=== PATIENT | female | born 1985 | race African-American/Black ===

== ENCOUNTER 2016-03-07 10:41 | Emergency (ER) | payer OTHER, MEDICAID ==
[2016-03-07 10:56] VITALS: BP 116/78
[2016-03-07] MEDS ORDERED: ACETAMINOPHEN 325 MG TABLET PO ONE (11:41)
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
== END 2016-03-07 12:30 | disposition home or self-care (01) ==
LOC: ER 10:41
DX: S40.012A Contusion of left shoulder, initial encounter (principal); S16.1XXA Strain of muscle, fascia and tendon at neck level, initial encounter; M54.9 Dorsalgia, unspecified; M54.2 Cervicalgia; W19.XXXA Unspecified fall, initial encounter
CPT/HCPCS: 99283

== ENCOUNTER → 2016-03-07 | Outpatient (CLI) | payer MEDICAID | LOC: RAD 09:19 | DX: R10.31 Right lower quadrant pain (principal) | CPT/HCPCS: 76830; 76856 ==

== ENCOUNTER 2016-04-02 13:16 | Emergency (ER) | payer MEDICAID ==
--- NOTE | 2016-04-02 13:54 | ER Document Report ---
ED Medical Screen (RME) - General Chief Complaint: Abdominal Pain Stated Complaint: ABDOMINAL PAIN Notes: nadira at [facility] referred her over endometriosis h/o ovarian cysts procedure sched on for laparoscopy to eval and remove endometriosis moderate pain and spotting for 7 days. home medications not helping I have greeted and performed a rapid initial assessment of this patient. A comprehensive ED assessment and evaluation of the patient, analysis of test results and completion of the medical decision making process will be conducted by additional ED providers. TRAVEL OUTSIDE OF THE [place] IN LAST 30 DAYS: No - Related Data Allergies/Adverse Reactions: Iodinated Contrast Media - Oral and [Iodinated Contrast Media - IV Dye] Allergy (Mild, Verified 04/02/16 13:50) Iodine and Iodide Containing Produc Allergy (Mild, Verified 04/02/16 13:50) acetaminophen [From Vicodin] Allergy (Verified 04/02/16 13:50) hydrocodone [From [place]] Allergy (Verified 04/02/16 13:50) hydrocodone bitartrate [From Vicodin] Allergy (Verified 04/02/16 13:50) tramadol Allergy (Verified 04/02/16 13:50) Past Medical History Renal/ Medical History: Reports: Hx Ovarian Cysts Musculoskeltal Medical History: Reports Hx Musculoskeletal Trauma Traumatic Medical History: Reports: Hx Fractures Past Surgical History: Reports: Hx Gynecologic Surgery - Left oophrectomy, ovarian cyst removal, Hx Oral Surgery - wisdom teeth removal - Immunizations Immunizations up to date: Yes Hx Diphtheria, Pertussis, Tetanus Vaccination: Yes
[2016-04-02 14:22] LABS: ABSOLUTE EOSINOPHILS # (AUTO) 0.1 10^3/uL (0.0-0.6); ABSOLUTE LYMPHOCYTES (AUTO) 1.4 10^3/uL (0.5-4.7); ABSOLUTE MONOCYTES (AUTO) 0.3 10^3/uL (0.1-1.4); BASOPHILS % (AUTO) 0.4 % (0-2); EOSINOPHILS % (AUTO) 1.7 % (0-6); HEMATOCRIT 38.7 % (36.0-47.0); HEMOGLOBIN 12.3 g/dL (12.0-15.5); HGB HCT DIFFERENCE -1.8; MEAN CORPUSCULAR HEMOGLOBIN 24.8 pg (27.0-33.4); MEAN CORPUSCULAR HGB CONC 31.9 g/dL (32.0-36.0); MEAN CORPUSCULAR VOLUME 78 fl (80-97); MONOCYTES % (AUTO) 8.4 % (3-13); RED BLOOD COUNT 4.96 10^6/uL (3.72-5.28); SEGMENTED NEUTROPHILS % (AUTO) 52.5 % (42-78); WHITE BLOOD COUNT 3.9 10^3/uL (4.0-10.5)
[2016-04-02 14:30] LABS: APPEARANCE,URINE CLEAR; BILIRUBIN,URINE NEGATIVE (NEGATIVE); GLUCOSE, URINE NEGATIVE (NEGATIVE); KETONES,URINE NEGATIVE (NEGATIVE); LEUKOCYTE ESTERASE,URINE NEGATIVE (NEGATIVE); NITRITE,URINE NEGATIVE (NEGATIVE); PROTEIN,URINE NEGATIVE (NEGATIVE); URINE SPECIFIC GRAVITY 1.003; UROBILINOGEN,URINE NEGATIVE mg/dL (<2.0)
[2016-04-02 14:42] LABS: ALANINE AMINOTRANSFERASE 18 U/L (9-52); ALBUMIN 4.5 g/dL (3.5-5.0); ALKALINE PHOSPHATASE 57 U/L (38-126); ANION GAP 12 (5-19); ASPARTATE AMINO TRANSFERASE 18 U/L (14-36); BILIRUBIN,TOTAL 0.5 mg/dL (0.2-1.3); BLOOD UREA NITROGEN 11 mg/dL (7-20); CALCIUM 9.4 mg/dL (8.4-10.2); CARBON DIOXIDE 26 mmol/L (22-30); CHLORIDE 106 mmol/L (98-107); CREATININE RESULT 0.83 mg/dL (0.52-1.25); GLUCOSE 92 mg/dL (75-110); POTASSIUM 4.5 mmol/L (3.6-5.0); SODIUM 143.8 mmol/L (137-145)
--- NOTE | 2016-04-02 16:10 | ER Document Report ---
ED General - General Chief Complaint: Abdominal Pain Stated Complaint: ABDOMINAL PAIN Mode of Arrival: Ambulatory Information source: Patient Notes: 30 yr old female with recent diagnosis of endometriosis supposed to have surgery by Dr Waters on the presents with complaintos f pelvic cramping and spotting yesterday. Pt notes those symptoms have resolved but now she has pain. pt denies any fevers or chills. Pt admits to nausea . TRAVEL OUTSIDE OF THE [place] IN LAST 30 DAYS: No - HPI Onset: Other Onset/Duration: Intermittent Quality of pain: Cramping - Related Data Allergies/Adverse Reactions: Iodinated Contrast Media - Oral and [Iodinated Contrast Media - IV Dye] Allergy (Mild, Verified 04/02/16 13:50) Iodine and Iodide Containing Produc Allergy (Mild, Verified 04/02/16 13:50) acetaminophen [From Vicodin] Allergy (Verified 04/02/16 13:50) hydrocodone [From [place]] Allergy (Verified 04/02/16 13:50) hydrocodone bitartrate [From Vicodin] Allergy (Verified 04/02/16 13:50) tramadol Allergy (Verified 04/02/16 13:50) Past Medical History - Social History Smoking Status: Never Smoker Chew tobacco use (# tins/day): No Frequency of alcohol use: None Drug Abuse: None Family History: Arthritis, CAD, CVA, DM, Hyperlipidemia, Hypertension, Malignancy, Thyroid Disfunction, Other Patient has suicidal ideation: No Patient has homicidal ideation: No Renal/ Medical History: Reports: Hx Ovarian Cysts. Denies: Hx Peritoneal Dialysis Musculoskeltal Medical History: Reports Hx Musculoskeletal Trauma Traumatic Medical History: Reports: Hx Fractures Past Surgical History: Reports: Hx Gynecologic Surgery - Left oophrectomy, ovarian cyst removal, Hx Oral Surgery - wisdom teeth removal - Immunizations Immunizations up to date: Yes Hx Diphtheria, Pertussis, Tetanus Vaccination: Yes Physical Exam - Vital signs Vitals: Temp Pulse Resp BP Pulse Ox 98.4 F 101 H 18 116/63 100 04/02/16 13:35 04/02/16 13:35 04/02/16 13:35 04/02/16 13:35 04/02/16 13:35 Course - Re-evaluation Re-evalutation: 04/02/16 16:[address] Waters , who states he did not diagnosis her with endometriosis and that plan is for exploratroy lap for her chronic pain. patient was explained this very clearly. 04/02/16 16:36 I do not feel patient requires narcotics at this time given that her story does not match the actual visit she had with Dr Waters Patient encouraged to follow-up with her LIFE SCIENCE RESEARCH ASSISTANT for further care After performing a Medical Screening Examination, I estimate there is LOW risk for ACUTE APPENDICITIS, BOWEL OBSTRUCTION, ACUTE CHOLECYSTITIS, PERFORATED DIVERTICULITIS, INCARCERATED HERNIA, PANCREATITIS, PELVIC INFLAMMATORY DISEASE, PERFORATED ULCER, ECTOPIC , or TUBO-OVARIAN ABSCESS, thus I consider the discharge disposition reasonable. Also, there is no evidence or peritonitis , sepsis, or toxicity. The patient and I have discussed the diagnosis and risks , and we agree with discharging home with close follow-up with the understanding that symptoms and presentations can change. We also discussed returning to the Emergency Department immediately if new or worsening symptoms occur. We have discussed the symptoms which are most concerning (e.g., bloody stool, fever, changing or worsening pain, vomiting) that necessitate immediate return. - Vital Signs Vital signs: Temp Pulse Resp BP Pulse Ox 98.4 F 104 H 18 116/63 100 04/02/16 13:51 04/02/16 13:51 04/02/16 13:51 04/02/16 13:51 04/02/16 13:51 - Laboratory Result Diagrams: 04/02/16 14:05 04/02/16 14:05 Laboratory results interpreted by me: 04/02/16 14:05 WBC 3.9 L MCV 78 L MCH 24.8 L MCHC 31.9 L Discharge - Discharge Clinical Impression: Chronic pelvic pain in female Condition: Stable Disposition: HOME, SELF-CARE Instructions: Abdominal Pain ([facility]) Prescriptions: Sulindac 200 mg PO Q8 #30 tablet Referrals: SCOTT WATERS MD [ACTIVE STAFF] - Follow up in 3-5 days
[2016-04-02 17:31] VITALS: BP 110/64
== END 2016-04-02 17:29 | disposition home or self-care (01) ==
LOC: ER 13:16
DX: G89.29 Other chronic pain (principal); R10.2 Pelvic and perineal pain; Z88.6 Allergy status to analgesic agent
CPT/HCPCS: 36415; 80053; 81001; 85025; 99284

== ENCOUNTER 2016-04-11 15:40 | Emergency (ER) | payer MEDICAID ==
--- NOTE | 2016-04-11 16:42 | ER Document Report ---
ED Medical Screen (RME) - General Stated Complaint: CRAMPING Notes: 30 yo female c/o lower abdominal cramping. hx/o endometriosis. pt is scheduled for surgery 04/23. Dr Waters @ [facility]. + urinary frequency, + nausea. TRAVEL OUTSIDE OF THE [place] IN LAST 30 DAYS: No - Related Data Allergies/Adverse Reactions: Iodinated Contrast Media - Oral and [Iodinated Contrast Media - IV Dye] Allergy (Mild, Verified 04/02/16 13:50) Iodine and Iodide Containing Produc Allergy (Mild, Verified 04/02/16 13:50) acetaminophen [From Vicodin] Allergy (Verified 04/02/16 13:50) hydrocodone [From [place]] Allergy (Verified 04/02/16 13:50) hydrocodone bitartrate [From Vicodin] Allergy (Verified 04/02/16 13:50) tramadol Allergy (Verified 04/02/16 13:50) Past Medical History Renal/ Medical History: Reports: Hx Ovarian Cysts. Denies: Hx Peritoneal Dialysis Musculoskeltal Medical History: Reports Hx Musculoskeletal Trauma Traumatic Medical History: Reports: Hx Fractures Past Surgical History: Reports: Hx Gynecologic Surgery - Left oophrectomy, ovarian cyst removal, Hx Oral Surgery - wisdom teeth removal - Immunizations Immunizations up to date: Yes Hx Diphtheria, Pertussis, Tetanus Vaccination: Yes Physical Exam - Vital signs Vitals: Temp Pulse Resp BP Pulse Ox 97.8 F 81 20 109/78 100 04/11/16 16:34 04/11/16 16:34 04/11/16 16:34 04/11/16 16:34 04/11/16 16:34 Course - Vital Signs Vital signs: Temp Pulse Resp BP Pulse Ox 97.8 F 81 20 109/78 100 04/11/16 16:34 04/11/16 16:34 04/11/16 16:34 04/11/16 16:34 04/11/16 16:34
[2016-04-11 17:44] LABS: ABSOLUTE EOSINOPHILS # (AUTO) 0.1 10^3/uL (0.0-0.6); ABSOLUTE LYMPHOCYTES (AUTO) 1.9 10^3/uL (0.5-4.7); ABSOLUTE MONOCYTES (AUTO) 0.3 10^3/uL (0.1-1.4); ABSOLUTE NEUT (AUTO) 1.7 10^3/uL (1.7-8.2); BASOPHILS % (AUTO) 0.6 % (0-2); EOSINOPHILS % (AUTO) 1.9 % (0-6); HEMATOCRIT 38.2 % (36.0-47.0); HEMOGLOBIN 12.3 g/dL (12.0-15.5); HGB HCT DIFFERENCE -1.3; LYMPHOCYTES % (AUTO) 48.2 % (13-45); MEAN CORPUSCULAR HGB CONC 32.3 g/dL (32.0-36.0); MEAN CORPUSCULAR VOLUME 78 fl (80-97); MONOCYTES % (AUTO) 7.1 % (3-13); RED BLOOD COUNT 4.92 10^6/uL (3.72-5.28); RED CELL DISTRIBUTION WIDTH 14.1 % (11.5-14.0); SEGMENTED NEUTROPHILS % (AUTO) 42.2 % (42-78)
[2016-04-11 17:56] LABS: APPEARANCE,URINE CLEAR; BILIRUBIN,URINE NEGATIVE (NEGATIVE); GLUCOSE, URINE NEGATIVE (NEGATIVE); KETONES,URINE NEGATIVE (NEGATIVE); LEUKOCYTE ESTERASE,URINE NEGATIVE (NEGATIVE); NITRITE,URINE NEGATIVE (NEGATIVE); PROTEIN,URINE NEGATIVE (NEGATIVE); URINE SPECIFIC GRAVITY 1.012; UROBILINOGEN,URINE NEGATIVE mg/dL (<2.0)
[2016-04-11 18:04] LABS: ALANINE AMINOTRANSFERASE 20 U/L (9-52); ALBUMIN 4.6 g/dL (3.5-5.0); ALKALINE PHOSPHATASE 57 U/L (38-126); ANION GAP 11 (5-19); ASPARTATE AMINO TRANSFERASE 21 U/L (14-36); BILIRUBIN,TOTAL 0.5 mg/dL (0.2-1.3); BLOOD UREA NITROGEN 11 mg/dL (7-20); CALCIUM 9.5 mg/dL (8.4-10.2); CARBON DIOXIDE 26 mmol/L (22-30); CHLORIDE 105 mmol/L (98-107); CREATININE RESULT 0.75 mg/dL (0.52-1.25); GLUCOSE 81 mg/dL (75-110); POTASSIUM 4.2 mmol/L (3.6-5.0); SODIUM 142.4 mmol/L (137-145); TOTAL PROTEIN 8.3 g/dL (6.3-8.2)
--- NOTE | 2016-04-11 18:32 | ER Document Report ---
ED General - General Chief Complaint: Abdominal Pain Stated Complaint: CRAMPING Notes: Patient is a 30-year-old female past medical history of chronic abdominal pain that is attributed to endometriosis who presents with diffuse abdominal pain that she has had for several months worsened in the last 3-4 days. States it is typically worsened around her menstrual cycle. Described as a diffuse, cramping, severe abdominal pain. Nothing improves or worsens the pain. She is scheduled for a exploratory laproscopic surgery on the of this month to further evaluate the cause of today's pain. Notes that she's had associated nausea and vomiting but has been able to tolerate oral intake. She is not had a fever, weakness, numbness, chest pain or shortness of breath. TRAVEL OUTSIDE OF THE [place] IN LAST 30 DAYS: No - Related Data Allergies/Adverse Reactions: Iodinated Contrast Media - Oral and [Iodinated Contrast Media - IV Dye] Allergy (Mild, Verified 04/11/16 16:39) Iodine and Iodide Containing Produc Allergy (Mild, Verified 04/11/16 16:39) acetaminophen [From Vicodin] Allergy (Verified 04/11/16 16:39) hydrocodone [From [place]] Allergy (Verified 04/11/16 16:39) hydrocodone bitartrate [From Vicodin] Allergy (Verified 04/11/16 16:39) tramadol Allergy (Verified 04/11/16 16:39) Past Medical History - General Information source: Patient - Social History Smoking Status: Never Smoker Chew tobacco use (# tins/day): No Frequency of alcohol use: None Drug Abuse: None Lives with: Spouse/Significant other Family History: Arthritis, CAD, CVA, DM, Hyperlipidemia, Hypertension, Malignancy, Thyroid Disfunction, Other Patient has suicidal ideation: No Patient has homicidal ideation: No Renal/ Medical History: Reports: Hx Ovarian Cysts. Denies: Hx Peritoneal Dialysis Musculoskeltal Medical History: Reports Hx Musculoskeletal Trauma Traumatic Medical History: Reports: Hx Fractures Past Surgical History: Reports: Hx Gynecologic Surgery - Left oophrectomy, ovarian cyst removal, Hx Oral Surgery - wisdom teeth removal - Immunizations Immunizations up to date: Yes Hx Diphtheria, Pertussis, Tetanus Vaccination: Yes Review of Systems - Review of Systems Notes: Constitutional: Negative for fever. HENT: Negative for sore throat. Eyes: Negative for visual changes. Cardiovascular: Negative for chest pain. Respiratory: Negative for shortness of breath. Gastrointestinal: Positive for abdominal pain and vomiting Genitourinary: Negative for dysuria. Musculoskeletal: Negative for back pain. Skin: Negative for rash. Neurological: Negative for headaches, weakness or numbness. 10 point ROS negative except as marked above and in HPI. Physical Exam - Vital signs Vitals: Temp Pulse Resp BP Pulse Ox 97.8 F 81 20 109/78 100 04/11/16 16:34 04/11/16 16:34 04/11/16 16:34 04/11/16 16:34 04/11/16 16:34 Interpretation: Normal Notes: PHYSICAL EXAMINATION: GENERAL: Well-appearing, well-nourished and in no acute distress. HEAD: Atraumatic, normocephalic. EYES: Pupils equal round and reactive to light, extraocular movements intact, sclera anicteric, conjunctiva are normal. ENT: nares patent, oropharynx clear without exudates. Moist mucous membranes. NECK: Normal range of motion, supple without lymphadenopathy LUNGS: Breath sounds clear to auscultation bilaterally and equal. No wheezes rales or rhonchi. HEART: Regular rate and rhythm without murmurs ABDOMEN: Soft, nontender, normoactive bowel sounds. No guarding, no rebound. No masses appreciated. EXTREMITIES: Normal range of motion, no pitting or edema. No cyanosis. NEUROLOGICAL: No focal neurological deficits. Moves all extremities spontaneously and on command. PSYCH: Normal mood, normal affect. SKIN: Warm, Dry, normal turgor, no rashes or lesions noted. Course - Re-evaluation Re-evalutation: 04/11/16 18:29 Patient presents with chronic intermittent abdominal pain thought to be secondary to endometriosis. She has an exploratory laparoscopy scheduled for the of this month. She is in no acute distress, vitals within normal limits. No focal abdominal tenderness on examination. Laboratories obtained in triage are unremarkable. Patient is not currently on hormonal therapy and has been instructed by her OB to wait to start this until after the exploratory laparoscopic. She'll be treated with a small amount of pain control and nausea control. I have told her that this is especially for nighttime: Her pain is severe and that this will last her for several days if taken as directed.At this time will discharge with return precautions and follow-up recommendations. Verbal discharge instructions given a the bedside and opportunity for questions given. Medication warnings reviewed. Patient is in agreement with this plan and has verbalized understanding of return precautions and the need for primary care follow-up in the next 24-72 hours. - Vital Signs Vital signs: Temp Pulse Resp BP Pulse Ox 97.8 F 78 18 117/74 100 04/11/16 18:52 04/11/16 18:52 04/11/16 18:52 04/11/16 18:52 04/11/16 18:52 - Laboratory Result Diagrams: 04/11/16 17:32 04/11/16 17:32 Laboratory results interpreted by me: 04/11/16 04/11/16 17:32 17:32 MCV 78 L MCH 25.0 L RDW 14.1 H Lymphocytes % 48.2 H Total Protein 8.3 H Discharge - Discharge Clinical Impression: Chronic abdominal pain Condition: Good Disposition: HOME, SELF-CARE Additional Instructions: You have been seen in the Emergency Department (ED) for abdominal pain. Your labs and assessment overall reassuring and her pain is likely due to her chronic endometriosis. Please follow up with your doctor as soon as possible regarding today's emergent visit and the symptoms that are bothering you. Return to the ED if your abdominal pain worsens or fails to improve, you develop bloody vomiting, bloody diarrhea, you are unable to tolerate fluids due to vomiting, fever greater than 101, or other symptoms that concern you. Prescriptions: Oxycodone HCl [Oxycontin Ir 5 Mg Tablet] 1 - 2 mg PO Q4H PRN #12 tablet PRN Reason: For Pain Referrals: ANTONIA VIVAR MD [Primary Care Provider] - Follow up as needed
[2016-04-11] MEDS ORDERED: OXYCODONE HCL IR 5 MG TABLET PO ONE (18:34)
[2016-04-11] MEDS ORDERED: ONDANSETRON ODT 4 MG TAB (6 TAB/DSPK) PO PRN (18:36)
[2016-04-11 18:54] VITALS: BP 117/74
== END 2016-04-11 19:00 | disposition home or self-care (01) ==
LOC: ER 15:40
DX: G89.29 Other chronic pain (principal); R10.84 Generalized abdominal pain; R11.2 Nausea with vomiting, unspecified; Z91.041 Radiographic dye allergy status; Z88.6 Allergy status to analgesic agent; Z88.5 Allergy status to narcotic agent; Z87.42 Personal history of other diseases of the female genital tract; Z90.79 Acquired absence of other genital organ(s)
CPT/HCPCS: 99284; 36415; 84703; 85025; 80053; 81001; J3490

== ENCOUNTER 2016-04-23 05:36 | Day surgery (SDC) | payer MEDICAID ==
[2016-04-20 11:04] LABS: HEMATOCRIT 39.8 % (36.0-47.0); HEMOGLOBIN 12.7 g/dL (12.0-15.5); HGB HCT DIFFERENCE -1.7; MEAN CORPUSCULAR VOLUME 78 fl (80-97); RED BLOOD COUNT 5.09 10^6/uL (3.72-5.28); RED CELL DISTRIBUTION WIDTH 14.3 % (11.5-14.0); WHITE BLOOD COUNT 4.2 10^3/uL (4.0-10.5)
[2016-04-20 11:18] LABS: PARTIAL THROMBOPLASTIN TIME 35.4 SEC (23.5-35.8); PROTHROMBIN TIME 16.6 SEC (11.4-15.4)
[2016-04-20 11:46] LABS: APPEARANCE,URINE SLIGHTLY-CLOUDY; BILIRUBIN,URINE NEGATIVE (NEGATIVE); GLUCOSE, URINE NEGATIVE (NEGATIVE); KETONES,URINE NEGATIVE (NEGATIVE); LEUKOCYTE ESTERASE,URINE NEGATIVE (NEGATIVE); NITRITE,URINE NEGATIVE (NEGATIVE); PROTEIN,URINE NEGATIVE (NEGATIVE); URINE SPECIFIC GRAVITY 1.026; UROBILINOGEN,URINE NEGATIVE mg/dL (<2.0)
[~2016-04-23 05:36] MED LIST: LACTATED RINGERS 1000 ML IV PRN; LIDOCAINE 0.5% INJ-PF (5 MG/ML) 50 ML SDV SUBCUT PRN
[2016-04-23] MEDS ORDERED: MORPHINE SULFATE 10 MG/ML INJ ONE (07:36)
[2016-04-23] MEDS ORDERED: MIDAZOLAM 2 MG/2 ML INJ ONE (07:36)
[2016-04-23] MEDS ORDERED: PROPOFOL INJ 200 MG/20 ML VIAL IV ONE (07:36)
[2016-04-23] MEDS ORDERED: FENTANYL CITRATE INJ/PF 250 MCG/5 ML AMPULE ONE (07:36)
--- NOTE | 2016-04-23 08:25 | Operative Report ---
Operative Report DATE OF SURGERY: 04/23/16 PREOPERATIVE DIAGNOSIS: Chronic pelvic pain POSTOPERATIVE DIAGNOSIS: Adhesions OPERATION: Diagnostic laparoscopy SURGEON: SCOTT GONSALEZ COMMERCIAL LOAN CLOSER: or staff ANESTHESIA: GA TISSUE REMOVED OR ALTERED: None COMPLICATIONS: None ESTIMATED BLOOD LOSS: 10 mL INTRAOPERATIVE FINDINGS: The uterus and omentum are densely adherent to the anterior abdominal wall. PROCEDURE: Patient was taken back to the OR. She's placed in supine position. General anesthesia was induced. She is in place in the dorsal lithotomy position using Parminder stirrups. Her abdomen perineum and vagina were prepared and draped in a sterile fashion. Incision was made at the umbilicus natural umbilical defect was identified and dilated with Maria Eugenia clamp. This allowed 5 mm port to be placed bluntly. Rhinoscopy confirmed appropriate placement. Sponge stick was placed in the vagina for manipulation of the uterus. Her bladder was drained prior to the case. View of the pelvis showed omental adhesion to the anterior abdominal wall. The uterus was densely adhered along its entire length to the anterior abdominal wall. The right ovary and tube were absent. Left ovary ovary and tube could be seen dangling behind the uterus. View of the cul-de-sacs very good. There appeared to be a lot of vascularity in the posterior cul-de-sac but no evidence of endometriosis. The dense adhesions are the most likely source of her abdominal pains. I did not attempt to lyse these adhesions as complications are likely with the uterus adherent to the anterior abdominal wall. Complications from bleeding and/or injury to bladder would be at risk. If she has completed childbearing perhaps a hysterectomy would be the best course of action at this point. At this point I allowed the gas to escape from the abdomen. The scope and port were removed and Unasyn. The fascia at the umbilicus closed with a 2-0 Vicryl stitch and skin closed with 4-0 undyed Vicryl suture. Patient was extubated and taken to recovery in stable condition.
[2016-04-23] MEDS ORDERED: KETOROLAC TROMETHAMINE INJ/PF 30 MG/1 ML SDV IV PRN (09:05)
[2016-04-23] MEDS ORDERED: IBUPROFEN 800 MG TABLET PO PRN (09:05)
[2016-04-23] MEDS ORDERED: OXYCODONE HCL IR 5 MG TABLET ONE (09:19)
[2016-04-23] MEDS ORDERED: OXYCODONE HCL IR 5 MG TABLET PO PRN ×2 (09:19→09:20)
[2016-04-23 10:56] VITALS: BP 114/78
[2016-04-23] MEDS ORDERED: ONDANSETRON HCL INJ/PF 4 MG/2 ML SDV ONE (14:49)
[2016-04-23] MEDS ORDERED: ROCURONIUM BROMIDE INJ 50 MG/5 ML VIAL IV ONE (14:49)
[2016-04-23] MEDS ORDERED: LIDOCAINE 2% INJ-PF (20 MG/ML) 10 ML AMPUL ONE (14:49)
[2016-04-23] MEDS ORDERED: GLYCOPYRROLATE INJ 0.4 MG/2 ML VIAL ONE (14:49)
[2016-04-23] MEDS ORDERED: METOCLOPRAMIDE HCL INJ/PF 10 MG/2 ML SDV ONE (14:49)
[2016-04-23] MEDS ORDERED: NEOSTIGMINE METHYLSULFATE 10 MG/10 ML VIAL ONE (14:49)
[2016-04-23] MEDS ORDERED: SUCCINYLCHOLINE CHLORIDE INJ 200 MG/10 ML VIAL ONE (14:49)
== END 2016-04-23 10:50 | disposition home or self-care (01) ==
LOC: OROUT 05:36
PROVIDERS: ATTEND Obstetrics & Gynecology
PROC: 0DNW4ZZ Release Peritoneum, Percutaneous Endoscopic Approach (ICD-10-PCS; principal; 2016-04-23 07:30)
DX: R10.2 Pelvic and perineal pain (principal); N73.6 Female pelvic peritoneal adhesions (postinfective); Z88.5 Allergy status to narcotic agent
CPT/HCPCS: 36415; 85027; 85610; 85730; 81005; 81025; 49329; J2250; J3490 ×4; J3010; J1885; J2765; J0330; J2405; J2704; 840; J2270

== ENCOUNTER 2016-06-27 16:24 | Observation (INO) | payer MEDICAID ==
[2016-06-27] MEDS ORDERED: DEXTROSE 40% GEL 15 GM TUBE PO PRN (16:48)
[2016-06-27] MEDS ORDERED: GLUCAGON,HUMAN RECOMB 1 MG INJ SUBCUT PRN (16:48)
[2016-06-27] MEDS ORDERED: DEXTROSE 50%-WATER 25 GM/50 ML DISP.SYRIN IV PRN ×2 (16:48)
[2016-06-27] MEDS ORDERED: ONDANSETRON HCL INJ/PF 4 MG/2 ML SDV ONE (17:24)
[2016-06-27] MEDS: HYDROMORPHONE HCL INJ/PF 2 MG/ML AMPULE IV PRN ×2 (17:25→22:05)
[2016-06-27 17:38] LABS: HEMATOCRIT 35.4 % (36.0-47.0); HEMOGLOBIN 11.5 g/dL (12.0-15.5); HGB HCT DIFFERENCE -0.9; MEAN CORPUSCULAR HEMOGLOBIN 25.2 pg (27.0-33.4); MEAN CORPUSCULAR HGB CONC 32.6 g/dL (32.0-36.0); MEAN CORPUSCULAR VOLUME 77 fl (80-97); RED BLOOD COUNT 4.58 10^6/uL (3.72-5.28); RED CELL DISTRIBUTION WIDTH 14.5 % (11.5-14.0); WHITE BLOOD COUNT 3.9 10^3/uL (4.0-10.5)
[2016-06-27] MEDS: ONDANSETRON HCL INJ/PF 4 MG/2 ML SDV IV PRN (22:05)
[2016-06-28] MEDS: RINGERS SOLUTION,LACTATED 1,000 ML IV PRN ×2 (03:09→21:10)
[2016-06-28] MEDS: ONDANSETRON HCL INJ/PF 4 MG/2 ML SDV IV PRN ×2 (04:05→08:45)
[2016-06-28] MEDS: HYDROMORPHONE HCL INJ/PF 2 MG/ML AMPULE IV PRN ×2 (04:05→08:32)
--- NOTE | 2016-06-28 11:00 | PDOC PROGRESS REPORT ---
Subjective Progress Note for:: 06/28/16 Subjective:: patient indicates her pain and discomfort has not changed significantly since yesterday. Is improved with pain meds. is desiring to eat. Physical Exam - Physical Exam Vital Signs: Temp Pulse Resp BP Pulse Ox 98.5 F 76 18 109/58 L 100 06/28/16 07:39 06/28/16 07:39 06/28/16 07:39 06/28/16 07:39 06/28/16 07:39 Intake & Output 06/27/16 06/28/16 06/29/16 06:59 06:59 06:59 Intake Total 1722 Output Total 1100 Balance 622 Weight 82.1 kg General appearance: PRESENT: no acute distress Eye exam: PRESENT: conjunctiva pink Mouth exam: PRESENT: moist GI/Abdominal exam: PRESENT: soft, tenderness - tenderness primarily on left lower quadrant radiating to pubic bone Result Laboratory Results: 06/27/16 17:26 06/27/16 06/27/16 17:26 17:26 WBC 3.9 L RBC 4.58 Hgb 11.5 L Hct 35.4 L MCV 77 L MCH 25.2 L MCHC 32.6 RDW 14.5 H Plt Count 154 Blood Type A POSITIVE Antibody Screen NEGATIVE Assessment & Plan - Diagnosis (1) at early stage Is this a current diagnosis for this admission?: Yes (2) Pelvic pain affecting in first trimester, antepartum Is this a current diagnosis for this admission?: Yes (3) Back pain Qualifiers: Back pain location: low back pain Is this a current diagnosis for this admission?: YesPlan: spoke with patient at length regarding potential normal uterine vs possibility of ectopic. Right now, levels of BHCG have risen normally for normal , however levels are too low to detect sonographically. Advised patient that as she is stable at this time would continue watching HCG levels to accurately determine location of . D/ W pt at length that could be viable and that she could continue with but that she would likely have pretty significant discomfort due to her pelvic adhesions that were visualized at her laparoscope in April with Dr. Waters. At this time main objective is to determine the viability of this and rule out or rule in an ectopic . Will continue to monitor in the hospital due to risks of rapid decompensation if is indeed an ectopic and rupture occurs. Voices understanding. Coleen Castañeda RN present during counseling. - Time Time Spent with patient: 15-24 minutes Critical Time spent with patient: 15-24 minutes Medications reviewed and adjusted accordingly: Yes Anticipated discharge: Home Within: within 36 hours - Inpatient Certification Based on my medical assessment, after consideration of the patient's comorbidities, presenting symptoms, or acuity I expect that the services needed warrant INPATIENT care.: Yes I certify that my determination is in accordance with my understanding of Medicare's requirements for reasonable and necessary INPATIENT services [42 CFR 412.3e].: Yes Medical Necessity: Need Close Monitoring Due to Risk of Patient Decompensation, Need for Pain Control
[2016-06-28] MEDS ORDERED: OXYCODONE-ACETAMINOPHEN 5-325 MG TABLET PO PRN (11:30)
[2016-06-28] MEDS: OXYCODONE-ACETAMINOPHEN 5-325 MG TABLET PO PRN ×2 (14:42→20:40)
[2016-06-28] MEDS: DIPHENHYDRAMINE HCL 50 MG CAPSULE PO PRN (20:39)
[2016-06-29] MEDS: OXYCODONE-ACETAMINOPHEN 5-325 MG TABLET PO PRN ×2 (02:25→08:40)
[2016-06-29] MEDS: DIPHENHYDRAMINE HCL 50 MG CAPSULE PO PRN (05:04)
[2016-06-29] MEDS: RINGERS SOLUTION,LACTATED 1,000 ML IV PRN (05:20)
[2016-06-29 14:34] VITALS: BP 100/60
--- NOTE | 2016-06-29 17:48 | DISCHARGE SUMMARY E ---
Discharge Summary NAME: CHELSEY BURNS : 1985 AGE: 30Y ADMITTED: 06/27/2016 DISCHARGED: 06/29/2016 ADMITTING DIAGNOSIS: Pelvic pain in , rule out ectopic. FINAL DIAGNOSES: 1. that is intrauterine. 2. Pelvic pain from adhesions. HISTORY: The patient was previously scheduled for hysterectomy for pelvic adhesions and pain. At the preop visit, she was noted to be and the surgery was canceled. She came in the next week with pain, was admitted to rule out an ectopic. She has had serial hCGs and ultrasounds. Today she shows an appropriate rise of the hCG and an intrauterine on ultrasound. At this point, we will allow her to go home, since she is not at risk from an ectopic. We will see her next week and continue to follow the . We are starting vitamins and I have given her a small prescription of Percocet to take for pain. She is supposed to take it very sparingly. CONDITION ON DISCHARGE: Good. DICTATING PHYSICIAN: SCOTT KISER M.D. [id number] PHY#: [id number] ID: [id number] JOB#: [id number] ACCT: [id number] cc:BRITTANI ABDI M.D., DAMAIN M.D. >
== END 2016-06-29 16:20 | disposition home or self-care (01) ==
LOC: 2N 16:24
PROVIDERS: ADMIT Specialist; ATTEND Specialist
DX: O99.89 Other specified diseases and conditions complicating pregnancy, childbirth and the puerperium (principal); N73.6 Female pelvic peritoneal adhesions (postinfective); M54.5 Low back pain; Z3A.00 Weeks of gestation of pregnancy not specified; Z90.721 Acquired absence of ovaries, unilateral; Z80.9 Family history of malignant neoplasm, unspecified
CPT/HCPCS: 86900; 86901; 36415 ×2; 86850; 84702 ×2; 85027; 76817; 93976; G0378 ×3; G0379; J3490 ×2; J1170 ×2; J2405 ×2; J7120 ×2

== ENCOUNTER → 2016-08-03 | Outpatient (CLI) | payer MEDICAID | LOC: OD 16:40 | PROVIDERS: ATTEND Student in an Organized Health Care Education/Training Program | DX: O02.1 Missed abortion (principal) | CPT/HCPCS: 36415; 84702 ==

== ENCOUNTER 2016-11-01 06:00 | Day surgery (SDC) | payer MEDICAID ==
[2016-10-26 12:44] LABS: HEMATOCRIT 36.4 % (36.0-47.0); HEMOGLOBIN 11.8 g/dL (12.0-15.5); MEAN CORPUSCULAR HEMOGLOBIN 25.5 pg (27.0-33.4); MEAN CORPUSCULAR HGB CONC 32.6 g/dL (32.0-36.0); MEAN CORPUSCULAR VOLUME 78 fl (80-97); RED BLOOD COUNT 4.65 10^6/uL (3.72-5.28); RED CELL DISTRIBUTION WIDTH 14.1 % (11.5-14.0); WHITE BLOOD COUNT 2.9 10^3/uL (4.0-10.5)
[2016-10-26 12:48] LABS: APPEARANCE,URINE CLEAR; BILIRUBIN,URINE NEGATIVE (NEGATIVE); GLUCOSE, URINE NEGATIVE (NEGATIVE); KETONES,URINE NEGATIVE (NEGATIVE); LEUKOCYTE ESTERASE,URINE NEGATIVE (NEGATIVE); NITRITE,URINE NEGATIVE (NEGATIVE); PROTEIN,URINE NEGATIVE (NEGATIVE); URINE SPECIFIC GRAVITY 1.027; UROBILINOGEN,URINE NEGATIVE mg/dL (<2.0)
[2016-10-26 13:14] LABS: ALANINE AMINOTRANSFERASE 17 U/L (9-52); ALBUMIN 4.1 g/dL (3.5-5.0); ALKALINE PHOSPHATASE 48 U/L (38-126); ANION GAP 9 (5-19); ASPARTATE AMINO TRANSFERASE 18 U/L (14-36); BILIRUBIN,DIRECT 0.3 mg/dL (0.0-0.4); BILIRUBIN,TOTAL 0.4 mg/dL (0.2-1.3); BLOOD UREA NITROGEN 9 mg/dL (7-20); CARBON DIOXIDE 27 mmol/L (22-30); CHLORIDE 104 mmol/L (98-107); CREATININE RESULT 0.67 mg/dL (0.52-1.25); GLUCOSE 87 mg/dL (75-110); POTASSIUM 4.5 mmol/L (3.6-5.0); SODIUM 140.3 mmol/L (137-145); TOTAL PROTEIN 7.5 g/dL (6.3-8.2)
[~2016-11-01 06:00] MED LIST changes: +CEFAZOLIN 2 GM/D5W RTU 2 GM/50 ML RTUPB IV PRN
[2016-11-01 06:34] VITALS: BP 117/79
[2016-11-01] MEDS ORDERED: FENTANYL CITRATE INJ/PF 250 MCG/5 ML AMPULE ONE (06:53)
[2016-11-01] MEDS ORDERED: ACETAMINOPHEN 0 ML IV ONE (06:54)
[2016-11-01] MEDS ORDERED: HYDROMORPHONE HCL INJ/PF 2 MG/ML AMPULE ONE (06:54)
[2016-11-01] MEDS ORDERED: MIDAZOLAM 2 MG/2 ML INJ ONE (06:54)
[2016-11-01] MEDS ORDERED: PROPOFOL INJ 200 MG/20 ML VIAL IV ONE (06:55)
== END 2016-11-01 08:30 | disposition home or self-care (01) ==
LOC: OROUT 06:00 → UNDOADMIN 06:01 → INOR 06:01 → EDSTATUS 07:30 → OROUT 08:30 → UNDODISIN 08:30
PROVIDERS: ATTEND Obstetrics & Gynecology
DX: Z01.818 Encounter for other preprocedural examination (principal)
CPT/HCPCS: 86900; 86901; 36415 ×2; 86850; 85027; 81025; 80053; 81001; J0690; J0131; J1170; J2250; J2704; J3010

== ENCOUNTER 2016-12-05 07:14 | Inpatient (IN) | payer MEDICAID ==
[~2016-12-05 07:14] MED LIST changes: +ACETAMINOPHEN 0 ML IV ONE; -CEFAZOLIN 2 GM/D5W RTU 2 GM/50 ML RTUPB IV PRN; +EPHEDRINE SULFATE INJ 50 MG/1 ML AMPULE ONE; +FENTANYL CITRATE INJ/PF 100 MCG/2 ML AMPUL ONE; +FENTANYL CITRATE INJ/PF 250 MCG/5 ML AMPULE ONE; -LACTATED RINGERS 1000 ML IV PRN; -LIDOCAINE 0.5% INJ-PF (5 MG/ML) 50 ML SDV SUBCUT PRN; +MIDAZOLAM 2 MG/2 ML INJ ONE; +MORPHINE SULFATE 10 MG/ML INJ ONE; +PROPOFOL INJ 200 MG/20 ML VIAL IV ONE
[2016-12-05] MEDS ORDERED: CEFAZOLIN 2 GM/D5W RTU 2 GM/50 ML RTUPB IV ONE (07:28)
[2016-12-05 08:11] LABS: HEMATOCRIT 35.4 % (36.0-47.0); HEMOGLOBIN 11.7 g/dL (12.0-15.5); HGB HCT DIFFERENCE -0.3; MEAN CORPUSCULAR HEMOGLOBIN 25.8 pg (27.0-33.4); MEAN CORPUSCULAR HGB CONC 33.1 g/dL (32.0-36.0); MEAN CORPUSCULAR VOLUME 78 fl (80-97); RED BLOOD COUNT 4.54 10^6/uL (3.72-5.28); RED CELL DISTRIBUTION WIDTH 14.3 % (11.5-14.0); WHITE BLOOD COUNT 4.3 10^3/uL (4.0-10.5)
[2016-12-05 08:24] LABS: ALANINE AMINOTRANSFERASE 21 U/L (9-52); ALBUMIN 3.9 g/dL (3.5-5.0); ALKALINE PHOSPHATASE 55 U/L (38-126); ANION GAP 6 (5-19); ASPARTATE AMINO TRANSFERASE 17 U/L (14-36); BILIRUBIN,DIRECT 0.3 mg/dL (0.0-0.4); BILIRUBIN,TOTAL 0.3 mg/dL (0.2-1.3); BLOOD UREA NITROGEN 11 mg/dL (7-20); CALCIUM 9.3 mg/dL (8.4-10.2); CARBON DIOXIDE 29 mmol/L (22-30); CHLORIDE 106 mmol/L (98-107); CREATININE RESULT 0.79 mg/dL (0.52-1.25); GLUCOSE 101 mg/dL (75-110); POTASSIUM 3.8 mmol/L (3.6-5.0); SODIUM 141.4 mmol/L (137-145); TOTAL PROTEIN 7.3 g/dL (6.3-8.2)
[2016-12-05 09:10] LABS: APPEARANCE,URINE SLIGHTLY-CLOUDY; BILIRUBIN,URINE NEGATIVE (NEGATIVE); GLUCOSE, URINE NEGATIVE (NEGATIVE); KETONES,URINE NEGATIVE (NEGATIVE); LEUKOCYTE ESTERASE,URINE MODERATE (NEGATIVE); NITRITE,URINE NEGATIVE (NEGATIVE); PROTEIN,URINE NEGATIVE (NEGATIVE); UROBILINOGEN,URINE NEGATIVE mg/dL (<2.0)
[2016-12-05] MEDS ORDERED: FENTANYL CITRATE INJ/PF 250 MCG/5 ML AMPULE ONE (09:50)
[2016-12-05] MEDS ORDERED: PROPOFOL INJ 200 MG/20 ML VIAL IV ONE (09:51)
[2016-12-05] MEDS ORDERED: MIDAZOLAM 2 MG/2 ML INJ ONE (09:51)
[2016-12-05] MEDS ORDERED: HYDROMORPHONE HCL INJ/PF 2 MG/ML AMPULE ONE ×2 (09:51→13:43)
[2016-12-05] MEDS ORDERED: EPHEDRINE SULFATE INJ 50 MG/1 ML AMPULE ONE (09:51)
[2016-12-05] MEDS ORDERED: ACETAMINOPHEN 100 ML IV ONE ×2 (09:52→20:00)
[2016-12-05] MEDS ORDERED: ROCURONIUM BROMIDE INJ 50 MG/5 ML VIAL IV ONE (11:28)
[2016-12-05] MEDS ORDERED: DEXAMETHASONE SOD PHOSPHATE INJ 4 MG/1 ML VIAL ONE (11:28)
[2016-12-05] MEDS ORDERED: ONDANSETRON HCL INJ/PF 4 MG/2 ML SDV ONE (11:28)
[2016-12-05] MEDS ORDERED: LIDOCAINE 2% INJ-PF (20 MG/ML) 10 ML AMPUL ONE (11:28)
[2016-12-05] MEDS ORDERED: GLYCOPYRROLATE INJ 0.4 MG/2 ML VIAL ONE (11:28)
[2016-12-05] MEDS ORDERED: NEOSTIGMINE METHYLSULFATE 10 MG/10 ML VIAL ONE (11:28)
[2016-12-05] MEDS ORDERED: PROMETHAZINE HCL INJ 25 MG/1 ML VIAL IV PRN (11:29)
[2016-12-05] MEDS ORDERED: DIPHENHYDRAMINE HCL 50 MG/ML VIAL IV PRN (11:29)
[2016-12-05] MEDS ORDERED: FENTANYL CITRATE INJ/PF 100 MCG/2 ML AMPUL IV PRN ×3 (11:29)
[2016-12-05] MEDS ORDERED: MEPERIDINE HCL/PF INJ 25 MG/1 ML DISP.SYRIN IV PRN (11:29)
[2016-12-05] MEDS: FENTANYL CITRATE INJ/PF 100 MCG/2 ML AMPUL ONE ×2 (13:22→13:30)
--- NOTE | 2016-12-05 13:33 | OPERATIVE REPORT E ---
Operative Report NAME: CHELSEY BURNS : 1985 AGE: 31Y DATE OF SURGERY: 12/05/2016 ROOM: OR TIME: 12:50 p.m. SURGEON: SCOTT KISER M.D. ORDER PROCESSING CLERK: DR. IVAN PREOPERATIVE DIAGNOSIS: Persistent uterine pain, pelvic pain. POSTOPERATIVE DIAGNOSIS: Dense adhesions of the uterus and the anterior abdominal pain and a left ovarian cyst. FINDINGS: Dense adhesions with left ovarian cyst. COMPLICATIONS: None. BLOOD LOSS: 100 mL. SPECIMEN: Uterus, left tube and ovary. PROCEDURE: Supracervical hysterectomy with a left salpingo-oophorectomy. INDICATION: The patient's history is significant for previous laparoscopy showing dense adhesions. She has had chronic pelvic pain and wishes to have her uterus and remaining ovary removed. DESCRIPTION OF THE PROCEDURE: The patient was taken to the OR and placed in a supine position. General anesthesia was induced. Her abdomen was prepared and draped in a sterile fashion. Her bladder was drained with a Toribio catheter. She was in a supine position. An incision was made and extended down to the level of the fascia, which was nicked in the midline. The fascial incision was extended bilaterally using curved Pereyra scissors. The fascia was off the rectus muscles using sharp and blunt dissection. The scar at this level was very dense. The uterus was adhesed to the back of the rectus muscles. The rectus muscles were divided and the dense adhesions of the uterus to the rectus were taken down sharply. This restored somewhat normal anatomy, although there were still very dense adhesions overlying the uterus at the level of the bladder. The [place] retractor was placed. The uterus was grasped and elevated. The round ligaments were grasped with [place] clamps, cut, and ligated with 0-Vicryl sutures. The uterine angles bilaterally were clamped with Maria Eugenia clamps for manipulation of the uterus. The anterior leaf of the broad ligament was incised creating a bladder flap. The bladder was taken down sharply as much as possible, although was very densely adhesed to the cervix. Next, the uterine arteries were clamped with the LigaSure device, cauterized and cut bilaterally. We continued to work with sharp and blunt dissection at the anterior aspect of the cervix over the bladder and were able to take the bladder down sharply for about 1 cm. It was still quite dense and at this point, we decided to do a supracervical hysterectomy because of the dense adhesions to the cervix. The uterine arteries had already been severed. The uterine body was cut free from the cervix with a knife. The upper cervical canal was cauterized with the Bovie. The cervical stump was then closed with interrupted sutures of 0 Vicryl. Hemostasis was assured at this point. The pedicles were inspected and the uterine artery pedicles were hemostatic. Attention was then turned to the ovary on the left. This was exposed and the infundibulopelvic pedicle was clamped, ligated, and cut using the LigaSure device. This pedicle was well away from the ureter at this point. The ovary and tube were then passed off the field. There was slight bleeding at the left round ligament pedicle and this was cauterized with the LigaSure device providing good hemostasis. The pelvis was irrigated and suctioned free of fluid. No further active bleeding could be seen. Interseed was placed over the cervical stump. The Zarephath retractor and lap sponges were removed, counts were correct. The rectus muscles were plicated together in the midline with 3 interrupted sutures of 0 Chromic. The subfascial tissues were inspected for bleeding. The fascia was closed with a running 0 Vicryl in 2 segments. The wound was irrigated. Kylah's layer was closed with 2-0 plain gut stitch and the skin was closed with a 4-0 undyed Vicryl suture. The wound was dressed. The patient was extubated in the OR and taken to the recovery room in stable condition. DICTATING PHYSICIAN: SCOTT KISER M.D. [id number] Y#: [id number] ID: [id number] JOB#: [id number] ACCT: [id number] cc:SCOTT KISER M.D. >
[2016-12-05] MEDS ORDERED: KETOROLAC TROMETHAMINE INJ/PF 30 MG/1 ML SDV IV ONE (15:00)
[2016-12-05 16:10] LABS: HEMATOCRIT 37.7 % (36.0-47.0); HEMOGLOBIN 12.3 g/dL (12.0-15.5); HGB HCT DIFFERENCE -0.8; MEAN CORPUSCULAR HEMOGLOBIN 25.3 pg (27.0-33.4); MEAN CORPUSCULAR HGB CONC 32.5 g/dL (32.0-36.0); MEAN CORPUSCULAR VOLUME 78 fl (80-97); RED BLOOD COUNT 4.85 10^6/uL (3.72-5.28); RED CELL DISTRIBUTION WIDTH 14.5 % (11.5-14.0)
[2016-12-05 16:11] LABS: WHITE BLOOD COUNT 10.4 10^3/uL (4.0-10.5)
[2016-12-05 17:04] LABS: ANION GAP 7 (5-19); BLOOD UREA NITROGEN 9 mg/dL (7-20); CALCIUM 8.9 mg/dL (8.4-10.2); CARBON DIOXIDE 28 mmol/L (22-30); CHLORIDE 105 mmol/L (98-107); CREATININE RESULT 0.71 mg/dL (0.52-1.25); GLUCOSE 116 mg/dL (75-110); POTASSIUM 3.8 mmol/L (3.6-5.0); SODIUM 140.3 mmol/L (137-145)
[2016-12-05] MEDS: RINGERS SOLUTION,LACTATED 1,000 ML IV PRN (17:05)
[2016-12-05] MEDS: ONDANSETRON 4 MG TAB.RAPDIS PO PRN (19:55)
[2016-12-05] MEDS: OXYCODONE-ACETAMINOPHEN 5-325 MG TABLET PO PRN (19:55)
[2016-12-05] MEDS: HYDROMORPHONE HCL INJ/PF 2 MG/ML AMPULE IV PRN (21:40)
[2016-12-06] MEDS: HYDROMORPHONE HCL INJ/PF 2 MG/ML AMPULE IV PRN ×4 (00:49→18:59)
[2016-12-06] MEDS: RINGERS SOLUTION,LACTATED 1,000 ML IV PRN (02:00)
[2016-12-06 06:31] LABS: HEMATOCRIT 32.6 % (36.0-47.0); HEMOGLOBIN 10.7 g/dL (12.0-15.5); HGB HCT DIFFERENCE -0.5; MEAN CORPUSCULAR HEMOGLOBIN 25.6 pg (27.0-33.4); MEAN CORPUSCULAR HGB CONC 32.9 g/dL (32.0-36.0); MEAN CORPUSCULAR VOLUME 78 fl (80-97); RED BLOOD COUNT 4.19 10^6/uL (3.72-5.28); RED CELL DISTRIBUTION WIDTH 14.4 % (11.5-14.0); WHITE BLOOD COUNT 9.2 10^3/uL (4.0-10.5)
[2016-12-06 06:48] LABS: ANION GAP 7 (5-19); BLOOD UREA NITROGEN 8 mg/dL (7-20); CARBON DIOXIDE 27 mmol/L (22-30); CHLORIDE 102 mmol/L (98-107); CREATININE RESULT 0.74 mg/dL (0.52-1.25); GLUCOSE 106 mg/dL (75-110); POTASSIUM 4.2 mmol/L (3.6-5.0); SODIUM 135.7 mmol/L (137-145)
[2016-12-06] MEDS: ONDANSETRON 4 MG TAB.RAPDIS PO PRN (08:19)
[2016-12-06] MEDS: IBUPROFEN 800 MG TABLET PO SCH ×2 (11:39→21:32)
[2016-12-06] MEDS: OXYCODONE-ACETAMINOPHEN 5-325 MG TABLET PO PRN ×2 (11:40→21:42)
[2016-12-07] MEDS: HYDROMORPHONE HCL INJ/PF 2 MG/ML AMPULE IV PRN (00:50)
[2016-12-07] MEDS: OXYCODONE-ACETAMINOPHEN 5-325 MG TABLET PO PRN ×2 (05:58→12:25)
--- NOTE | 2016-12-07 06:22 | DISCHARGE SUMMARY E ---
Discharge Summary NAME: CHELSEY BURNS : 1985 AGE: 31Y ADMITTED: 12/05/2016 DISCHARGED: 12/06/2016 The patient was admitted on 12/05 for a hysterectomy. ADMITTING DIAGNOSIS: Pelvic adhesions and pelvic pain. HISTORY OF PRESENT ILLNESS: Patient is a 31-year-old female who has completed childbearing. She has had a previous , and her uterus is adhesed to the anterior abdominal wall. This has been seen on a previous laparoscopy. She is done with childbearing and would like a hysterectomy to help her with her chronic pelvic pain. HOSPITAL COURSE: Patient was admitted and underwent an abdominal hysterectomy, and her remaining left ovary was removed as well at her request. Procedure went well. Please see the operative report. On the night of surgery, her pain was controlled. She was able to ambulate. Her Toribio was removed the following day. She was able to void and started on a regular diet. Her hemoglobin, hematocrit, and vitals were stable. On postop day 2, she continued to do well and went home later that day with followup in 1 week in the office. DISCHARGE MEDICATIONS: Included Percocet, Motrin, and Premarin. The Premarin is 0.9 mg once a day to help with hot flashes and night sweats. CONDITION ON DISCHARGE: Good. DISCHARGE INSTRUCTIONS: As stated previously, she will follow up in 1 week. She is to go home to rest, pelvic rest. No driving for 2 weeks. DICTATING PHYSICIAN: SCOTT KISER M.D. [id number] PHY#: [id number] ID: [id number] JOB#: [id number] ACCT: [id number] cc:SCOTT KISER M.D. >
[2016-12-07] MEDS: IBUPROFEN 800 MG TABLET PO SCH (09:00)
[2016-12-07] MEDS ORDERED: PHENAZOPYRIDINE HCL 100 MG TABLET PO SCH (10:00)
[2016-12-07] MEDS ORDERED: NITROFURANTOIN MONOHYD/M-CRYST 100 MG CAPSULE PO SCH (10:00)
[2016-12-07 11:07] VITALS: BP 124/85
[2016-12-07] MEDS: ONDANSETRON 4 MG TAB.RAPDIS PO PRN (12:26)
== END 2016-12-07 13:08 | disposition home or self-care (01) | DRG 983 ==
LOC: INOR 07:14 → 2N 14:34
PROVIDERS: ADMIT Obstetrics & Gynecology; ATTEND Obstetrics & Gynecology
PROC: 0UT90ZL Resection of Uterus, Supracervical, Open Approach (ICD-10-PCS; 2016-12-05)
PROC: 0UN90ZZ Release Uterus, Open Approach (ICD-10-PCS; 2016-12-05)
PROC: 0UB10ZZ Excision of Left Ovary, Open Approach (ICD-10-PCS; principal; 2016-12-05 10:45)
DX: G89.29 Other chronic pain (principal); R10.2 Pelvic and perineal pain; N71.9 Inflammatory disease of uterus, unspecified; N83.202 Unspecified ovarian cyst, left side; Z80.9 Family history of malignant neoplasm, unspecified
CPT/HCPCS: 36415; 80048; 80053; 81001; 81025; 840; 85027; 86850; 86900; 86901; 88307; C1765; J0131; J0690; J1100; J1170; J1885; J2250; J2270; J2405; J2704; J3010; J3490; J7120; J8499; S0119

== ENCOUNTER 2017-04-11 22:59 | Emergency (ER) | payer MEDICAID ==
[2017-04-12] MEDS ORDERED: IBUPROFEN 600 MG TABLET PO ONE (01:54)
--- NOTE | 2017-04-12 01:54 | ER Document Report ---
ED Medical Screen (RME) - General Chief Complaint: Foot Injury Stated Complaint: TOE INJURY Time Seen by Provider: 04/12/17 01:51 TRAVEL OUTSIDE OF THE [place] IN LAST 30 DAYS: No - HPI Notes: 04/12/17 01:51 Patient is a 31-year-old female who presents to the ED complaining of a crush injury to her left foot status post injury prior to arrival. Patient states that she was moving her 55 inch TV when it fell and landed on the top of her foot. Patient states that she has had pain since then. The pain does not radiate. Pain is described as a sharp pain. Patient states that she fractured her fifth phalanges on that foot a few months ago. Patient has not taken any medications for her symptoms. Denies any headache, fever, head injury, URI, sore throat, chest pain, palpitations, syncope, cough, shortness of breath, wheeze, dyspnea, abdominal pain, nausea/vomiting/diarrhea, urinary retention, dysuria, hematuria, loss of control of bowel or bladder, numbness/tingling, or rash. I have treated and performed a rapid initial assessment of this patient. A comprehensive ED assessment and evaluation of the patient, analysis of test results and completion of medical decision making process will be conducted by additional ED providers. - Related Data Allergies/Adverse Reactions: hydrocodone [From [place]] Allergy (Severe, Verified 10/26/16 11:02) rash hydrocodone bitartrate [From Vicodin] Allergy (Severe, Verified 10/26/16 11:02) rash Iodinated Contrast- Oral and IV Dye [Iodinated Contrast Media - IV Dye] Allergy (Severe, Verified 10/26/16 11:02) itching tramadol Allergy (Severe, Verified 10/26/16 11:02) rash Iodine and Iodide Containing Produc Allergy (Mild, Verified 10/26/16 11:02) itching Past Medical History - Past Medical History Cardiac Medical History: Pulmonary Medical History: Neurological Medical History: Renal/ Medical History: Denies: Hx Ovarian Cysts, Hx Peritoneal Dialysis, Hx Pelvic Inflammatory Disease Malignancy Medical History: Denies: Hx Breast Cancer, Hx Cervical Cancer, Hx Leukemia, Hx Ovarian Cancer GI Medical History: Reports: Hx Gastroesophageal Reflux Disease - PRILOSEC. Denies: Hx Crohn's Disease, Hx Hiatal Hernia, Hx Irritable Bowel, Hx Liver Failure, Hx Pancreatitis, Hx Ulcer Musculoskeltal Medical History: Denies Hx Arthritis, Denies Hx Fibromyalgia, Denies Hx Muscular Dystrophy, Reports Hx Musculoskeletal Trauma Traumatic Medical History: Reports: Hx Fractures Infectious Medical History: Denies: Hx HIV Past Surgical History: Reports: Hx Section - 2013, Hx Gynecologic Surgery - Left oophrectomy, ovarian cyst removal, Hx Hysterectomy, Hx Oral Surgery - wisdom teeth removal. Denies: Hx Appendectomy, Hx Bowel Surgery, Hx Cholecystectomy, Hx Colostomy, Hx Coronary Artery Bypass Graft, Hx Gastric Bypass Surgery, Hx Herniorrhaphy, Hx Mastectomy, Hx Pacemaker, Hx Tonsillectomy , Hx Tubal Ligation - Immunizations Immunizations up to date: Yes Hx Diphtheria, Pertussis, Tetanus Vaccination: Yes History of Influenza Vaccine for 12/2016 - 05/2017 Season: No Physical Exam - Vital signs Vitals: Temp Pulse Resp BP Pulse Ox 98.0 F 107 H 18 111/78 100 04/11/17 23:21 04/11/17 23:21 04/11/17 23:21 04/11/17 23:21 04/11/17 23:21 - Respiratory Breath sounds: Normal - Cardiovascular Rhythm: Regular Heart sounds: Normal auscultation - Extremities Foot: Tender - dorsal foot, Metatarsal compress. pain, Unable to bear weight. No: Abrasion, Deformity, Ecchymosis, Laceration Course - Vital Signs Vital signs: Temp Pulse Resp BP Pulse Ox 98.0 F 87 18 112/75 100 04/12/17 01:30 04/12/17 01:30 04/12/17 01:30 04/12/17 01:30 04/12/17 01:30
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
[2017-04-12] MEDS ORDERED: OXYCODONE-ACETAMINOPHEN 5-325 MG TABLET PO ONE (02:25)
--- NOTE | 2017-04-12 02:29 | RADIOLOGY REPORT (SQ) ---
EXAM DESCRIPTION: FOOT LEFT COMPLETE CLINICAL HISTORY: left foot pain s/p crush injury COMPARISON: None. FINDINGS: 3 views of the left foot. Acute minimally displaced fracture involving the base of the left fifth proximal phalanx. No other fractures identified. The tarsals and metatarsals are appropriately aligned. Normal osseous mineralization. Pes planus. IMPRESSION: 1. Acute minimally displaced fracture involving the base of the left fifth proximal phalanx.
[2017-04-12 03:27] VITALS: BP 111/73
== END 2017-04-12 03:37 | disposition home or self-care (01) ==
LOC: ER 22:59
DX: S92.512A Displaced fracture of proximal phalanx of left lesser toe(s), initial encounter for closed fracture (principal); W20.8XXA Other cause of strike by thrown, projected or falling object, initial encounter; Z88.5 Allergy status to narcotic agent; Z91.041 Radiographic dye allergy status
CPT/HCPCS: 99283; 73630; J3490

== ENCOUNTER 2017-10-05 13:36 | Emergency (ER) | payer MEDICAID ==
[2017-10-05 13:46] VITALS: BP 127/79
[2017-10-05] MEDS ORDERED: LIDOCAINE 2% VISCOUS SOLN 20 ML UDCUP PO ONE (14:06)
--- NOTE | 2017-10-05 14:12 | ER Document Report ---
HPI - HPI Patient complains to provider of: Sore on her right cheek Onset: Other - A few days Onset/Duration: Gradual, Persistent Pain Level: 5 Context: 31-year-old female complaining of severe pain to her right cheek where there is a sore. She thinks it is her tooth. No fever or chills. Facial swelling. Associated Symptoms: None Exacerbated by: Other - Touching the area Relieved by: Denies Similar symptoms previously: No Recently seen / treated by doctor: No - ROS ROS below otherwise negative: Yes Systems Reviewed and Negative: Yes All other systems reviewed and negative - REPRODUCTIVE LMP: Hysterectomy Past Medical History - General Information source: Patient - Social History Smoking Status: Never Smoker Chew tobacco use (# tins/day): No Frequency of alcohol use: None Drug Abuse: None Lives with: Family Family History: Arthritis, CAD, CVA, DM, Hyperlipidemia, Hypertension, Malignancy, Thyroid Disfunction, Other Patient has suicidal ideation: No Patient has homicidal ideation: No - Past Medical History Cardiac Medical History: Pulmonary Medical History: Neurological Medical History: GI Medical History: Reports: Hx Gastroesophageal Reflux Disease - PRILOSEC Musculoskeletal Medical History: Reports Hx Musculoskeletal Trauma Traumatic Medical History: Reports: Hx Fractures Past Surgical History: Reports: Hx Section - 2012, Hx Gynecologic Surgery - Left oophrectomy, ovarian cyst removal, Hx Hysterectomy, Hx Oral Surgery - wisdom teeth removal - Immunizations Immunizations up to date: Yes Hx Diphtheria, Pertussis, Tetanus Vaccination: Yes Vertical Provider Document - CONSTITUTIONAL Agree With Documented VS: Yes Exam Limitations: No Limitations - INFECTION CONTROL TRAVEL OUTSIDE OF THE [place] IN LAST 30 DAYS: No - HEENT Notes: Abscess ulcer inside right buccal mucosa teeth are nontender and there is no gingival inflammation or swelling. - NECK Neck: Supple - NEURO Level of Consciousness: Alert, Appropriate Course - Vital Signs Vital signs: Temp Pulse Resp BP Pulse Ox 98.8 F 91 20 127/79 H 98 10/05/17 13:44 10/05/17 13:44 10/05/17 13:44 10/05/17 13:44 10/05/17 13:44 Discharge - Discharge Clinical Impression: Aphthous ulcer Condition: Good Disposition: HOME, SELF-CARE Instructions: Ulcer ([facility]) Additional Instructions: lidocaine to numb the apthous ulcer rinse mouth tylenol motrin to er any concerns Prescriptions: Ibuprofen [Motrin 600 mg Tablet] 600 mg PO Q8HP PRN #30 tablet PRN Reason: Referrals: ANTONIA VIVAR MD [Primary Care Provider] - Follow up as needed
== END 2017-10-05 14:17 | disposition home or self-care (01) ==
LOC: ER 13:36
DX: K12.0 Recurrent oral aphthae (principal)
CPT/HCPCS: 99282; J3490

== ENCOUNTER 2018-02-23 00:56 | Emergency (ER) | payer MEDICAID ==
[2018-02-23] MEDS ORDERED: ACETAMINOPHEN 325 MG TABLET PO ONE (02:07)
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
[2018-02-23 03:20] VITALS: BP 128/71
== END 2018-02-23 03:19 | disposition home or self-care (01) ==
LOC: ER 00:56
DX: S09.90XA Unspecified injury of head, initial encounter (principal); R51 Headache; Y04.0XXA Assault by unarmed brawl or fight, initial encounter
CPT/HCPCS: 99284; 70450; 70486; 72125; J3490

== ENCOUNTER 2018-08-21 12:30 | Emergency (ER) | payer MEDICAID ==
[2018-08-21 12:43] VITALS: BP 111/68
[2018-08-21] MEDS ORDERED: PHENAZOPYRIDINE HCL 200 MG TABLET PO ONE (14:07)
--- NOTE | 2018-08-21 14:09 | ER Document Report ---
HPI - HPI Patient complains to provider of: Dysuria Time Seen by Provider: 08/21/18 13:55 Onset/Duration: Persistent Quality of pain: Burning Pain Level: 5 Context: Patient presents complaining of dysuria for the past 2 weeks. Patient denies any fever. Patient denies any vaginal bleeding. Associated Symptoms: Other - Dysuria. denies: Fever, Nausea, Vomiting Exacerbated by: Denies Relieved by: Denies Similar symptoms previously: Yes Recently seen / treated by doctor: No - ROS ROS below otherwise negative: Yes Systems Reviewed and Negative: Yes All other systems reviewed and negative - CONSTITUTIONAL Constitutional: DENIES: Fever, Chills - NEURO Neurology: DENIES: Weakness - GASTROINTESTINAL Gastrointestinal: DENIES: Abdominal Pain, Nausea - URINARY Urinary: REPORTS: Dysuria, Frequency - REPRODUCTIVE Reproductive: DENIES: : - MUSCULOSKELETAL Musculoskeletal: DENIES: Back Pain - DERM Skin Color: Normal Skin Problems: None Past Medical History - General Information source: Patient - Social History Smoking Status: Never Smoker Frequency of alcohol use: None Drug Abuse: None Occupation: Childcare Lives with: Family Family History: Arthritis, CAD, CVA, DM, Hyperlipidemia, Hypertension, Malignancy, Thyroid Disfunction, Other Patient has suicidal ideation: No Patient has homicidal ideation: No - Past Medical History Cardiac Medical History: Pulmonary Medical History: Neurological Medical History: Renal/ Medical History: Denies: Hx Ovarian Cysts, Hx Peritoneal Dialysis, Hx Pelvic Inflammatory Disease GI Medical History: Reports: Hx Gastroesophageal Reflux Disease - PRILOSEC Musculoskeletal Medical History: Reports Hx Musculoskeletal Trauma Traumatic Medical History: Reports: Hx Fractures Infectious Medical History: Denies: Hx HIV Past Surgical History: Reports: Hx Section - 2013, Hx Gynecologic Surgery - Left oophrectomy, ovarian cyst removal, Hx Hysterectomy, Hx Oral Surgery - wisdom teeth removal - Immunizations Immunizations up to date: Yes Hx Diphtheria, Pertussis, Tetanus Vaccination: Yes Vertical Provider Document - CONSTITUTIONAL Agree With Documented VS: Yes Exam Limitations: No Limitations General Appearance: WD/WN, No Apparent Distress - INFECTION CONTROL TRAVEL OUTSIDE OF THE [place] IN LAST 30 DAYS: No - HEENT HEENT: Atraumatic, Normocephalic - NECK Neck: Normal Inspection - RESPIRATORY Respiratory: Breath Sounds Normal, No Respiratory Distress - CARDIOVASCULAR Cardiovascular: Regular Rate, Regular Rhythm - GI/ABDOMEN Gastrointestinal: Abdomen Soft, Abdomen Tender - Suprapubic tenderness - BACK Back: Normal Inspection. negative: CVA Tenderness-Right, CVA Tenderness-Left - MUSCULOSKELETAL/EXTREMETIES Musculoskeletal/Extremeties: TAMAR FREEDMAN - NEURO Level of Consciousness: Awake, Alert, Appropriate Motor/Sensory: No Motor Deficit - DERM Integumentary: Warm Course - Re-evaluation Re-evalutation: 08/21/18 14:08 Patient presents with dysuria symptoms that she has been treating with cranberry juice and water. Patient denies any fever or flank pain. Patient denies any concerns about any sexually transmitted infection and declines testing at this time. 08/21/18 14:50 Patient advised that she does not have any findings worrisome for UTI on urinalysis results. Patient advised that we should evaluate for any possible pelvic infection that may be causing her symptoms. Patient awaiting for available room to have pelvic examination performed. Patient is agreeable with testing at this time. 08/21/18 15:51 RN states that patient is not in the waiting room and cannot be located at this time. Child who was with patient is gone as well. Suspect that patient eloped. 08/21/18 16:48 Reports that patient was noted to be in the hallway and told staff that she is on her way to her TRADING MANAGER providers office. Patient eloped - Vital Signs Vital signs: Temp Pulse Resp BP Pulse Ox 98.1 F 85 14 111/68 99 08/21/18 12:42 08/21/18 12:42 08/21/18 12:42 08/21/18 12:42 08/21/18 12:42 Discharge - Discharge Clinical Impression: Urinary symptom or sign Condition: Stable Disposition: HOME, SELF-CARE Referrals: ANTONIA VIVAR MD [Primary Care Provider] - Follow up as needed
[2018-08-21 14:47] LABS: APPEARANCE,URINE SLIGHTLY-CLOUDY; BILIRUBIN,URINE NEGATIVE (NEGATIVE); COLOR,URINE YELLOW; GLUCOSE, URINE NEGATIVE (NEGATIVE); KETONES,URINE TRACE mg/dL (NEGATIVE); LEUKOCYTE ESTERASE,URINE NEGATIVE (NEGATIVE); NITRITE,URINE NEGATIVE (NEGATIVE); PROTEIN,URINE NEGATIVE (NEGATIVE)
== END 2018-08-21 16:29 | disposition home or self-care (01) ==
LOC: ER 12:30
DX: R30.0 Dysuria (principal); R35.0 Frequency of micturition; Z53.20 Procedure and treatment not carried out because of patient's decision for unspecified reasons
CPT/HCPCS: 99281; 87086; 81001; J3490